=== PATIENT | female | born 2005 | race Caucasian/White ===

== ENCOUNTER 2024-05-12 21:38 | Inpatient (IN) | payer BC ==
[2024-05-12] MEDS: LACTATED RINGERS SOLUTION 1,000 ML/1,000 ML INFUS.BAG IV SCH (22:45)
[2024-05-12] MEDS ORDERED: BUTORPHANOL TARTRATE 2 MG/ML VIAL ONE (22:55)
[2024-05-12] MEDS ORDERED: PROMETHAZINE HCL 25 MG/1 ML VIAL ONE (22:55)
[2024-05-12 23:02] LABS: BASO % 0.4 % (0-2.0); HEMATOCRIT 28.7 % (32.4-45.2); HEMOGLOBIN 9.4 GM/dL (10.7-15.3); LYMPH % 15.4 % (8-40); MCH 27.5 pg (25.7-33.7); MCHC 32.7 g/dl (32.0-36.0); MEAN CELL VOLUME 84.3 fl (80-96); MEAN PLT VOLUME 10.4 fl (7.5-11.1); NEUT % 79.2 % (42.8-82.8); PLATELET COUNT 161 10^3/uL (134-434); RBC 3.41 M/mm3 (3.60-5.2); RDW 14.6 % (11.6-15.6); WHITE BLOOD COUNT 10.2 K/mm3 (4.0-10.0)
[2024-05-12] MEDS: BUTORPHANOL TARTRATE 2 MG/ML VIAL IVPUSH ONE (23:05)
[2024-05-12] MEDS: PROMETHAZINE HCL 25 MG/1 ML VIAL IVPB ONE (23:05)
[2024-05-12 23:14] LABS: INR 0.9 (0.83-1.09); PROTHROMBIN TIME (PATIENT) 9.9 SEC (9.7-13.0)
[2024-05-12 23:17] LABS: ACTIVATED PTT 26.1 SECONDS (25.2-36.5)
[2024-05-12 23:48] LABS: CALCIUM 8.9 mg/dL (8.5-10.1); POTASSIUM 3.8 mmol/L (3.5-5.1)
[2024-05-12 23:49] LABS: BLOOD UREA NITROGEN 6.1 mg/dL (7-18)
[2024-05-12 23:52] LABS: CREATININE 0.5 mg/dL (0.55-1.3)
[2024-05-13 00:18] LABS: HIV INTERPRETATION NEGATIVE (NEGATIVE)
[2024-05-13 05:51] VITALS: BMI 24.2
[2024-05-13] MEDS ORDERED: FENTANYL/BUPIVACAINE/NS/PF - PCEA - 50 ML DISP.SYRIN EP ONE (06:14)
[2024-05-13] MEDS ORDERED: FENTANYL CITRATE/PF 50 MCG/ML VIAL ONE (06:16)
[2024-05-13] MEDS: FENTANYL/BUPIVACAINE/NS/PF - PCEA - 50 ML DISP.SYRIN EP SCH (06:40)
[2024-05-13] MEDS ORDERED: NALOXONE HCL 0.4 MG/ML VIAL IVPUSH PRN (06:47)
[2024-05-13] MEDS: BUTORPHANOL TARTRATE 1 MG/ML VIAL IVPUSH ONE (09:23)
[2024-05-13] MEDS: PROMETHAZINE HCL 25 MG/1 ML VIAL IVPB ONE (09:23)
[2024-05-13] MEDS: CITRIC ACID/SODIUM CITRATE 30 ML UNIT-DOSE CUP PO ONE (09:25)
[2024-05-13] MEDS ORDERED: OXYTOCIN 20 UNITS in 0.9% NS 20 UNIT/1,000 ML INFUS.BAG IV ONE (09:55)
[2024-05-13] MEDS: OXYTOCIN 20 UNITS in 0.9% NS 20 UNIT/1,000 ML INFUS.BAG IV SCH (10:20)
[2024-05-13] MEDS ORDERED: BENZOCAINE 20% 57 GM BOTTLE TP PRN (10:47)
[2024-05-13] MEDS ORDERED: BISACODYL 10 MG SUPP.RECT RC PRN (10:47)
[2024-05-13] MEDS ORDERED: BENZOCAINE 28 GM HEMORRHOIDAL OINTMENT TP PRN (10:47)
[2024-05-13] MEDS ORDERED: WITCH HAZEL 50% (TUCKS) 40 PAD/JAR PAD TP PRN (10:47)
[2024-05-13] MEDS ORDERED: oxyCODONE HCL 5 MG TABLET PO PRN (10:47)
[2024-05-13] MEDS ORDERED: METHYLERGONOVINE MALEATE 0.2 MG/1 ML AMP IM PRN (10:47)
[2024-05-13 10:55] LABS: CORD BASE EXCESS -3.7 mmol/L (0-2); CORD HCO3 22.9 mmHg (20-29); CORD PCO2 46.9 mmHg (30-78); CORD pH 7.307 (7.14-7.44)
[2024-05-13 10:56] LABS: CORD BASE EXCESS -4.2 mmol/L (0-2); CORD HCO3 20.9 mmHg (20-29); CORD PCO2 38.8 mmHg (30-78); CORD pH 7.35 (7.14-7.44)
[2024-05-13] MEDS: IBUPROFEN 600 MG TABLET (FP) PO PRN (13:30)
[2024-05-13] MEDS: FERROUS SO4 325 MG TABLET (FP) PO SCH (13:47)
[2024-05-13 13:53] LABS: COCAINE, UR NEGATIVE (NEGATIVE); METHADONE, UR NEGATIVE (NEGATIVE); OPIATES, URI NEGATIVE (NEGATIVE); PHENCYCLIDINE,URINE NEGATIVE (NEGATIVE); URINE AMPHETAMINES NEGATIVE (NEGATIVE); URINE BARBITURATES NEGATIVE (NEGATIVE); URINE BENZODIAZEPINES NEGATIVE (NEGATIVE)
[2024-05-13] MEDS: ACETAMINOPHEN 325 MG TABLET (FP) PO PRN (16:39)
[2024-05-14 07:12] LABS: BASO % 0.6 % (0-2.0); EOS % 0.4 % (0-4.5); HEMATOCRIT 29.4 % (32.4-45.2); HEMOGLOBIN 9.3 GM/dL (10.7-15.3); MCH 27.1 pg (25.7-33.7); MCHC 31.8 g/dl (32.0-36.0); MEAN CELL VOLUME 85.4 fl (80-96); MEAN PLT VOLUME 10.4 fl (7.5-11.1); MONO % 6.5 % (3.8-10.2); NEUT % 67.5 % (42.8-82.8); PLATELET COUNT 158 10^3/uL (134-434); RBC 3.44 M/mm3 (3.60-5.2)
[2024-05-14] MEDS: PRENATAL VITAMINS W/ FOLIC ACID TABLET (FP) PO SCH (09:25)
[2024-05-14] MEDS ORDERED: SENNOSIDES/DOCUSATE COMBO (SENNA PLUS) TABLET (UD) PO PRN (22:00)
[2024-05-15 08:53] VITALS: BP 119/87; PULSE 77; RESP 16; TEMP 99
== END 2024-05-15 13:45 | disposition home or self-care (01) | DRG 807 ==
LOC: JDEL 21:38 → JLDR 05-13 05:30 → J3W 05-13 12:55
PROVIDERS: ADMIT Obstetrics & Gynecology; ATTEND Obstetrics & Gynecology
PROC: 10E0XZZ Delivery of Products of Conception, External Approach (ICD-10-PCS; principal; 2024-05-13)
DX: O69.89X0 Labor and delivery complicated by other cord complications, not applicable or unspecified (principal); Z37.0 Single live birth; O99.02 Anemia complicating childbirth; D64.9 Anemia, unspecified; Z3A.39 39 weeks gestation of pregnancy; Z37.9 Outcome of delivery, unspecified
CPT/HCPCS: 36415; 36600; 59025; 59409; 80048; 80307; 82803; 85025; 85610; 85730; 86780; 86803; 86850; 86900; 86901; 87340; 87389